=== PATIENT | female | born 1975 | race African-American/Black ===

== ENCOUNTER 2016-11-02 13:21 | Emergency (ER) | payer OTHER ==
[~2016-11-02] VITALS: Ht 171.4 cm; Wt 127.0 kg
[~2016-11-02 13:21] MED LIST: APIDRA SOL100 UNIT/1 SQ; AZITHROMYCIN250 MG PO; FLAGYL PO; FLONASE16 GM; GEODON80 MG PO; INVOKANA100 MG PO; LANTUS SOLOSTAR3 ML SQ; LEVAQUIN750 MG PO; LISINOPRIL PO; LISINOPRIL30 MG PO; MELOXICAM15 MG PO; MONTELUKAST SOD10 MG PO; PHENERGAN25 MG PO; PRAVASTATIN SOD80 MG PO; PRILOSEC PO; ROBAXIN500 MG PO; VICODIN ES 7.51 EAC1 PO; VOLTAREN75 MG PO
== END 2016-11-02 16:00 | disposition left against medical advice (07) ==
LOC: CED 13:21
DX: Z53.21 Procedure and treatment not carried out due to patient leaving prior to being seen by health care provider (principal)
CPT/HCPCS: 82947